=== PATIENT | female | born 1980 | race African-American/Black ===

== ENCOUNTER 2017-12-17 22:13 | Emergency (ER) | payer SELFPAY ==
[2017-12-17 22:18] VITALS: BP 111/63; PULSE 81; RESP 16; TEMP 36.8; O2SAT 100
--- NOTE | 2017-12-17 22:25 | DI.RPTCT_ITS ---
SYMPTOM/DIAGNOSIS: LEFT LOWER ABDOMINAL PAIN CT ABDOMEN AND PELVIS: CT abdomen and pelvis was performed following the uneventful administration of intravenous contrast material. The visualized lung bases are clear. The liver, spleen, pancreas, gallbladder and adrenal glands are unremarkable. There are right renal cysts present. No evidence of an hepatic mass is seen. The urinary bladder is intact. There does appear to be diffuse thickening of the urinary bladder wall. This may be due to under distension. Inflammatory infectious process cannot be excluded. In the left adnexa there is a tubular hypodense region with wall enhancement noted and stranding in the adjacent fat is noted. There are a couple small fluid collections seen in the adnexa. This may represent the ovary vs small abscess. The uterus is enlarged with several round masses present. These likely reflect multiple uterine fibroids. The bowel shows no evidence of obstruction or inflammation. No findings to suggest an acute appendicitis are present. There is a small amount of free fluid in the pelvis. No significant adenopathy or pneumoperitoneum is present. Note is made of a small fat containing umbilical hernia. No acute findings are seen in the bones. IMPRESSION: 1. Hypodense wall enhancing area in the left adnexa with surrounding inflammatory change. The findings are suspicious for a tubo- ovarian abscess. 2. Hypodensities seen in the alan-gynecologic region which may represent ovaries vs smaller abscesses. 3. Urinary bladder wall thickening. This may be due to under distension but the possibility of an inflammatory infectious process cannot be excluded.
--- NOTE | 2017-12-17 22:26 | ED.GENADUL ---
Disposition Clinical Impression: Abdominal pain Disposition: HOME Condition: Stable Instructions: Ovarian Cyst (ED) Additional Instructions: Drink fluids to stay hydrated you can take 1000mg tylenol and 600mg ibuprofen every 6 hours for pain as needed follow up this week with [facility] if you have severe worsening of pain or persistent vomit return to the emergency department Medical Decision Making - Lab Data Results reviewed for labs ordered during visit: Yes - Radiology Data Radiology results: report reviewed, image reviewed - Medical Decision Making pt here with llq pain for 3 days, will evaluate for diverticulitis and other surgical pathology with CT and also eval for pancreatitis and monitor labs unremarkable, she feels much better. Her CT shows question of tuboovarian abscess. SHe denies being sexually active in over a year and just had her perior without significant d/c. SHe declines pelvic exam at this time. Will obtain gc/chlamydia probes and discuss with obgyn Spoke with Dr. Mcdowell from obgyn who felt this was unlikely to be tuboovarian abscess without fever or other infectious symptoms and is likely a complex cyst. She recommends no abx and f/u with them Tuesday or Tuesday for repeat exam and likely u/s. - Differential Diagnosis diverticulitis, kidney stone, uti History of Present Illness - General Chief complaint: Abd Prob Stated complaint: ABD PAIN Time Seen by Provider: 12/17/17 22:21 Source: patient Mode of arrival: ambulatory Limitations: no limitations - History of Present Illness Initial comments: 37 yo female who denies prior surgeries or medical problems comes in with cc of left lower abdominal pain for 3 days. SHe states she has not had fevers or chills, no chest pain or sob, no urinary symptoms per the patient. She has tenderness to the llq on exam, no other pain elsewhere MD Complaint: left lower abdominal pain Onset/Timin -: days(s) Improves with: none Worsens with: none - Related Data Unknown [No Known Home Meds] 12/17/17 Allergies Allergy/AdvReac Type Severity Reaction Status Date / Time No Known Allergies Allergy Unverified 12/17/17 22:21 Review of Systems Constitutional: denies: chills, fever Respiratory: denies: shortness of breath Cardiovascular: denies: chest pain Gastrointestinal: abdominal pain. denies: nausea, vomiting Musculoskeletal: denies: back pain Skin: denies: rash Neurological: denies: headache Comment: All other systems reviewed and negative Past Medical History - Past Medical History Medical history: no medical history - Social History Smoking status: never smoker Alcohol use: rarely Drug use: none General Exam - General Limitations: no limitations General appearance: alert, in no apparent distress - Head Head exam: Present: atraumatic - Eye Eye exam: Present: normal apperance - ENT ENT exam: Present: mucous membranes moist - Neck Neck exam: Present: normal inspection - Respiratory Respiratory exam: Absent: respiratory distress - Cardiovascular Cardiovascular Exam: Present: regular rate - GI/Abdominal GI/Abdominal exam: Present: soft, tenderness. Absent: distended, guarding, rebound, rigid - Back Exam Back exam: Absent: CVA tenderness (R), CVA tenderness (L) - Neurological Exam Neurological exam: Present: alert, oriented X3 - Psychiatric Psychiatric exam: Present: normal affect - Skin Skin exam: Present: warm Course Vital Signs - 24 hr //18 22:18 Temperature 98.2 F Pulse 81 Respiratory 16 Rate Blood Pressure 111/63 Pulse Oximetry 100
[2017-12-17 22:45] LABS: Abs Immature Grans 0.01 k/cumm (0.0-0.09); Absolute Basophil Count 0.01 k/cumm (0.0-0.2); Absolute Eosinophil Count 0.26 k/cumm (0.0-0.7); Absolute Lymphocyte Count 1.15 k/cumm (1.2-3.4); Absolute Monocyte Count 0.58 k/cumm (0.11-0.7); Absolute Neutrophil Count 4.28 k/cumm (1.2-6.7); Basophils % 0.2; Eosinophils % 4.1; HGB 12.2 g/dL (12.0-15.5); Immature Grans % 0.2; Lymphocytes % 18.3; Mean Corp. HGB Concentration 34.9 g/dL (32.0-36.0); Mean Corpuscular Hemoglobin 27.4 pg (27.0-33.0); Mean Corpuscular Volume 78.5 fL (80-95); Mean Platelet Volume 12.2 fL (8.0-11.0); Monocytes % 9.2; Platelet Count 196 x1000/uL (130-400); RBC 4.46 m/cumm (4.00-5.20); RBC Distribution Width 14.5 % (11.7-14.6); White Blood Cell Count 6.29 k/cumm (4.4-10.8)
[2017-12-17 22:59] LABS: ALT 19 U/L (12-78); AST 21 U/L (15-37); Albumin 3.6 g/dL (3.4-5.0); Alkaline Phosphatase 68 U/L (46-116); Anion Gap 8.9 mmol/L (3-11); BUN 8 mg/dL (7-18); Bilirubin, Total 0.9 mg/dL (0.2-1.0); CO2 29.1 mmol/L (21.0-32.0); CREATININE 0.83 mg/dL (0.55-1.02); Calcium 7.7 mg/dL (8.5-10.1); Chloride 103 mmol/L (98-107); Glucose 73 mg/dL (70-100); Lipase 52 U/L (73-393); Potassium 3.7 mmol/L (3.5-5.1); Sodium 141 mmol/L (136-145); Total Protein 8.1 g/dL (6.4-8.2)
[2017-12-17] MEDS: Normal Saline 1,000 ML 1000 ML IV (23:06)
[2017-12-17] MEDS: Ondansetron 4 MG/2 ML VIAL IVP (23:08)
[2017-12-17] MEDS: Omnipaque 350 MG/ML 100 ML BTL IJ (23:09)
[2017-12-17] MEDS: Ketorolac 30 MG/ML VIAL 15 MG IVP (23:09)
--- NOTE | 2017-12-17 23:46 | DI.VRAD_ITS ---
EXAM: CT Abdomen and Pelvis With Intravenous Contrast CLINICAL HISTORY: 37 years old, female; Pain; Other: Left lower abd pain TECHNIQUE: Axial computed tomography images of the abdomen and pelvis with intravenous contrast. Coronal and sagittal reformatted images were created and reviewed. CONTRAST: 100 mL of omni 350 administered intravenously. COMPARISON: No relevant prior studies available. FINDINGS: Lung bases: Unremarkable. No mass. No consolidation. Mediastinum: Gas in the distal esophagus which can be seen with reflux. ABDOMEN: Liver: Unremarkable. No mass. Gallbladder and bile ducts: Unremarkable. No calcified stones. No ductal dilation. Pancreas: Unremarkable. No mass. No ductal dilation. Spleen: Unremarkable. No splenomegaly. Adrenals: The adrenal glands are not well delineated. Kidneys and ureters: There is right-sided hydronephrosis. No definite ureteral calculi seen. Stomach and bowel: There is gastric wall prominence with a rim of hypointensity identified on series 6 image 13. Finding should be correlated with concern for gastritis. Evaluation of the bowel is limited secondary to the lack of oral contrast. No evidence of bowel obstruction. PELVIS: Appendix: Normal appendix. Bladder: There is urinary bladder wall thickening. This may be reactive but should be correlated with any concern for infection. Reproductive: The uterus is heterogeneous in appearance. It also demonstrates multiple rounded masses which may represent fibroids. There is an irregular appearance to the endometrium in the fundal region which can be seen with infection or pathology. Series 8 images 27 through 36 demonstrates a tubular hypodensity in the left parauterine region with rim enhancement and lobulations. This is worrisome for a tubo-ovarian abscess.There are couple of additional hypodense structures seen on series 6 images 56 (4.1 cm; retrouterine; rounded with possible rim enhancement) and image 61 (3.9 cm; left parauterine; no definite rim enhancement). Alternatively, these could be represent ovaries. There is adjacent stranding of the periuterine fat. ABDOMEN and PELVIS: Intraperitoneal space: A small amount of free fluid is noted in the pelvis. No free air. Bones/joints: Mild skeletal degenerative changes. No acute fracture. No dislocation. Soft tissues: Small fat containing umbilical hernia. There is some stranding of the fat within this hernia which should be correlated with any concern for incarceration. Vasculature: Unremarkable. No abdominal aortic aneurysm. Lymph nodes: There is periaortic lymph node prominence and enlargement with lymph nodes measuring up to 1.7 cm (series 6 image 27) which may be reactive in nature. IMPRESSION: 1. Multiple gynecologic findings as discussed above. The most concerning findings include a possible tubo-ovarian abscess and a couple of additional hypodense structures as described for which abscesses are not entirely excluded. Ultrasound would be beneficial. 2. Urinary bladder wall thickening. This may be reactive but should be correlated with any concern for infection. 3. Lymph node prominence and enlargement which may be reactive. 4. Right-sided hydronephrosis with no definite ureteral calculi seen. 5. Gastric wall prominence with a rim of hypodensity. Finding should be correlated with any concern for gastritis. other findings as above. Dictated and Authenticated by: Mandi Ray MD. Ordering:CARRINGTON SOLANO MD
[2017-12-18 01:06] LABS: Bilirubin Negative (Negative); Blood Trace-intact (Negative); Clarity Sl Cloudy; Glucose Negative (Negative); Ketones Trace mg/dL (Negative); Leukocyte Esterase Small (Negative); Nitrite Positive (Negative); Specific Gravity <= 1.005 (1.005-1.025); Urobilinogen 0.2 EU/dL (Up TO 0.2)
[2017-12-18] MEDS: Ciprofloxacin 500 MG TAB PO (01:15)
[2017-12-18 01:18] LABS: Epithelial Cells Few HPF (Negative); Other Cells Rare Transitional (Negative); WBC >50 HPF (0-5)
[2017-12-18 01:19] LABS: Bacteria Moderate HPF (Negative); C & S Indicated? Yes; Casts Negative LPF (Negative); Crystals Negative HPF (Negative); Mucus Negative (Negative)
--- NOTE | 2017-12-19 09:57 | PDOC.ERCMPRO ---
Care Management Progress Note 12/19-Dr. Sanchez requested assistance with a [facility] f/u, Tuesday 12/19 or Wednesday 12/20, for ovarian cyst vs abscess. Referral faxed to [facility] this am.
[2017-12-20 14:38] LABS: Chlamydia Result Negative; GC Result Negative; Specimen Description URINE
== END 2017-12-18 01:24 | disposition home or self-care (01) ==
PROVIDERS: Emergency Provider Emergency Medicine
DX: N39.0 Urinary tract infection, site not specified (principal); B96.20 Unspecified Escherichia coli [E. coli] as the cause of diseases classified elsewhere; R10.32 Left lower quadrant pain; R93.5 Abnormal findings on diagnostic imaging of other abdominal regions, including retroperitoneum
CPT/HCPCS: 36415; 80053; 83690; 87077; 87491; 87591; 96361; 96374; 96375; 99285; 74177; 81003; 81015; 83735; 85025; 87086; 87186; 99284; J1885; J2405; J3490